=== PATIENT | male | born 1960 | race Caucasian/White ===

== ENCOUNTER 2020-02-13 05:55 | Day surgery (SDC) | payer OTHER, SELFPAY ==
[2020-01-16 10:00] VITALS: BMI 42.1
[2020-01-31 09:08] VITALS: BMI 42.0
--- NOTE | 2020-01-31 09:57 | HP_ITS ---
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 Is patient in pain?: No Allergies Penicillins Allergy (Verified 01/31/20 09:08) Anaphylaxis tetanus immune globulin Allergy (Verified 01/31/20 09:08) Pain in joints Medications Lisinopril [Zestril] 30 mg PO DAILY 01/16/20 [History Confirmed 01/31/20] Clindamycin [Cleocin] 300 mg PO TID 01/30/20 [History Confirmed 01/31/20] [facility] Medical History Benign skin lesion of nose (Acute) Essential (primary) hypertension (Acute) Impaired fasting glucose (Acute) Localized swelling, mass and lump, neck (Acute) Malignant (primary) neoplasm, unspecified (Acute) Mixed hyperlipidemia (Acute) Obesity, unspecified (Acute) Obstructive sleep apnea (adult) (pediatric) (Acute) Personal history of other specified conditions (Acute) Pneumonia (Acute) Secondary malignant neoplasm of other specified sites (Acute) Surgical History History of biopsy (Acute) History of tonsillectomy and adenoidectomy (Acute) S/P tooth extraction (Acute) Social History (Updated 01/31/20 @ 09:[address] Evelyn Castillo MD) Smoking Status: Former smoker HPI HPI HPI: TREVON CABALLERO, is a 59 M who presents to the office today for HPI HPI Surgical H&P: Yes HPI: TREVON CABALLERO, is a 59 M who presents to the office today for placement of port as well as PEG tube due to right-sided neck squamous cell cancer?unknown primary. Patient was initially referred for surgery at [facility] however due to coronavirus this has been delayed and plan to start chemotherapy and radiation first week of January per the patient. ROS General General: Yes weight change and fatigue; no colon cancer, breast cancer or weakness HEENT HEENT: Yes swollen glands; no difficulty swallowing, eye injury, eye surgery or hoarseness Endo Endocrine: No thyroid disease, diabetes mellitus, thyroid cancer, Hair loss, heat intolerance or cold intolerance Musc Musculoskeletal: Yes back problems; no arthritis, rheumatoid arthritis, gout or joint pain Cardio Cardiovascular: Yes high blood pressure; no murmur, pacemaker, heart disease, atrial fibrillation, heart attack, heart stent, palpitations, shortness of breat with exertion or chest pain Resp Respiratory: Yes shortness of breath, No sleep apnea, No cough, No COPD, No asthma, No emphysema, No wheezing Gastro Gastrointestinal: No abdominal pain, No nausea or vomiting, Yes diarrhea, No constipation, No blood in stool, Yes acid reflux, No hemorrhoids, No ulcers, No gallbladder problem, No black,tarry stools Chet Hematologic: No blood thinners, No blood disorders, No bleeding, No anemia, No blood clots Neuro Neurologic: No weakness Exam Const General: cooperative, comfortable, no acute distress Neck Lymphatic: lymphadenopathy (Right level 2 node 4 x 3 cm) Chest Chest palpation & inspection: normal inspection of the chest (Superior/anterior) Cardio Heart Sounds: no murmurs GI Inspection: non-distended, obesity Palpation: soft, no guarding, nontender Assessment & Plan Problems 1. Adjustment and management of vascular access device Z45.2 2. Head and neck cancer C76.0 3. Encounter for PEG (percutaneous endoscopic gastrostomy) Z43.1 Plan I have discussed above with the patient- Port-a-Cath placement. Left possible right Patient has been counseled as to the risks/benefits of the procedure. I have explained the risks of the surgery, including but not limited to: infection, bleeding, injury to any blood vessels/nerves, injury to lungs (such as pneumothorax or hemothorax and need for chest tube), not having any access, nonfunctioning of port due to thrombosis, infection of port, etc. the patient understands and agrees to proceed. I have answered all the patient's questions to the patient?s satisfaction and the patient has no further questions. I have discussed the above with the patient. I have offered the patient EGD with placement of PEG tube. I have explained the risks/benefits of the procedure and described the procedure. I have discussed the risks with the patient, including but not limited to: infection, bleeding, perforation of the GI tract requiring emergency surgery, inability to complete the procedure, injury to any internal organs, complications of anesthesia, etc. - the patient understands and agrees to proceed. I have answered all the patient's questions to the patient's satisfaction and the patient has no further questions. Procedure essential: Yes On 12/31/2019 the [facility] ([facility]) Public Order signed by [facility] Director Donya Jaquez M.D., regarding the Management of Non-Essential Surgeries and Procedures for the purpose of preserving Personal Protective Equipment (PPE) and critical hospital capacity and resources within [place] went into effect as of 01/01/2020 at 5:00PM. According to the [facility] Public Order: This action will remain in full force and effect until the State of Emergency declared by the Governor no longer exists or the Director of the [facility] rescinds or modifies this Order. This [facility] order stated all non-essential or elective surgeries and procedures that utilize PPE should be delayed unless there is undue risk to the current or future health of a patient. After reviewing the aforementioned [facility] Public Order and the patients clinical case, I have determined that the scheduled procedure meets the criteria to go forward. Reason for performing procedure: There is a risk of metastasis or progression of staging. Greater than 50% of direct patient contact was spent in counseling or coordination of care. I spent 45 minutes counseling the patient and coordinating care. Evelyn Castillo M.D. Pager: [phone] [facility] [address] [place] [address], [address] [place] [address] Office: [phone] Plan Detail Follow Up We will schedule port and PEG placement. Coding Level of Care Code Off vis,new,level 4 Diagnoses Adjustment and management of vascular access device Z45.2 Head and neck cancer C76.0 Encounter for PEG (percutaneous endoscopic gastrostomy) Z43.1 Time Spent (min) 45 01/31/20 0957 <Electronically signed by Evelyn Singh am, MD> Date _ Evelyn Castillo MD I have re-examined the patient. There are no clinical changes since date of exam.
[2020-02-04 09:26] VITALS: BMI 42.7
[2020-02-13] VITALS (8 sets, daily range): BP systolic 121–160; BP diastolic 71–93; PULSE 64–85; RESP 16–18; TEMP 36.2–36.6; O2SAT 72–98; BMI 42.4
[2020-02-13] MEDS: Lactated Ringers 1,000 ML 100 ML IV (06:42)
[2020-02-13] MEDS: Bupivacaine Mpf 0.5% 30 ML VIAL (07:49)
--- NOTE | 2020-02-13 08:42 | OP.PCM_ITS ---
Report of Operation Date of Procedure: 02/13/20 Pre-Operative Diagnosis: Z45.2, head neck cancer Post-Operative Diagnosis: Same Surgery/Procedure Performed:: 1. Placement of left IJ port. 2. Use of fluoroscopy. 3. Use of ultrasound. Type of Anesthesia:: Local MAC Anesthesiologist: Edilberto Smiley Special Medications: Clindamycin 900 mg IV x1 Specimen's removed: None Estimated Blood Loss (mL): < 10 cc Fluids Replaced: 1100 cc Description of Procedure: After informed consent was given, the patient was brought to the operating room and placed in the supine position. Appropriate time out protocol was followed. He was then given IV conscious sedation for anesthesia. The patient's bi lateral upper chest and neck were then prepped with a surgical skin preparation and sterile surgical drapes were placed. After proper landmarks were ascertained, the skin at the upper left chest area was then infiltrated with 1:1 mixture of 1% lidocaine with epinephrine and 0.5% marcaine. A needle trocar was then inserted into the left internal jugular vein with ultrasound guidance-multiple vessels were viewed with u/s and the left IJ was chosen-- and there was good aspiration of venous blood. A wire was then threaded into the needle trocar and this was visualized under fluoroscopy to e nsure that the wire was in the superior vena cava. Once this was done, then the needle trocar was removed. A small skin angel was made with an 11 blade knife at the wire entrance site. The dilator with the introducer sheath attached was then placed over the wire into the left internal jugular vein via the Seldinger technique and this was visualized under fluoroscopy. The dilator and sheath wer e in proper position as visualized by fluoroscopy. A subcutaneous pocket was then created caudad to the catheter insertion site. A transverse skin incision was made after the skin and subcutaneous tissues were infiltrated with local anesthetic. Blunt dissection was then used to create a space large enough for placement of the subcutaneous port. The catheter was then tunneled into the subcutaneous pocket. The wire and dilator were then removed. The catheter was then threaded into the introducer sheath and was positioned with its tip at the junction of the superior vena cava and the right atrium as visualized under fluoroscopy. The excess catheter was transected. The catheter was then attached to the subcutaneous port using manufacturers guidelines. The catheter was flushed with a heparin saline mixture prior to placement. Hemostasis was carefully controlled with electrocautery. The port was sutured to the subcutaneous fascia using 2-0 Vicryl suture at two sites. The port was then placed in the subcutaneous pocket. The incision were reapproximated with interrupted subdermal 3-0 vicryl sutures. The skin was reapproximated with 3-0 nylon suture in a interrupted fashion. Steristrips were used for reinforcement of the skin closure at IJ insertion site and a sterile opsite dressings were applied. The patient tolerated the procedure well. Implants Used: Bard PowerPort isp M.R.I. 6 Fr Lot [id number] ref [id number] Grafts/Implants Used: Bard PowerPort isp M.R.I. 6 Fr Lot [id number] ref [id number] - Complications none
--- NOTE | 2020-02-13 08:48 | DCINST_ITS ---
Discharge Diet: Light diet - advance as tolerated Discharge Activity: May not drive while taking narcotic pain medications. May shower in (days): 1 - Keep port site dry x5 days Lifting Restrictions: 15 lb w left arm x 1 week Call your doctor if your incision/area has: Continuous Slow Oozing, Sudden Increased Bleeding, Increased Pain/ Swelling, Increased Redness, Foul Smelling Discharge, Swelling at the incision site Call your doctor if you observe: Fever of 101 or Higher Catheter: - - Flush PEG daily Additional Dressing/Incision Instructions:: Keep port site clean and dry x5 days, to shower tape off with a Ziploc bag or lower shower and upper sponge bath, okay to get neck incision wet after 1 day Allergies/Adverse Reactions: Allergies Penicillins Allergy (Verified 02/13/20 06:26) Anaphylaxis tetanus immune globulin Allergy (Verified 02/13/20 06:26) Pain in joints Patient reports loss of use of arm and leg for a few days after receiving tetanus injection on that side Medications to take at Discharge Lisinopril [Zestril] 30 mg PO DAILY 01/16/20 Lidocaine/Prilocaine [Lidocaine-Prilocaine Cream] 1 applicatio TP DAILY PRN PRN 30 Days #1 tube 02/04/20 Ondansetron [Ondansetron Odt] 8 mg PO Q8H PRN PRN 10 Days #30 tab.rapdis 02/04/20 Hydrocodone/Acetaminophen [Hydrocodon-Acetaminophen 5-325] 1 ea PO Q6H PRN PRN 4 Days #10 tab 02/13/20 The following prescriptions were given: Hydrocodone/Acetaminophen [Hydrocodon-Acetaminophen 5-325] 1 ea PO Q6H PRN PRN 4 Days #10 tab PRN Reason: Pain Or Fever Transmission Status: Received by [facility] Primary Care Physician: CULLEN BARRY [Other] Test Results: Test results from this visit will be discussed in further detail at your follow- up appointment, if applicable. Please Follow Up With: Evelyn Castillo MD - After 5 PM and on the weekends call [phone] with any concerns When: Suture removal in 10 days at port site --either 02/20 or 02/23 at office Proposed Discharge Date: 02/13/20
--- NOTE | 2020-02-13 09:00 | RAD_ITS ---
STUDY: X-RAY CHEST REASON FOR EXAM: Male, 59 years old. Port placement TECHNIQUE: Single AP portable view of the chest. COMPARISON: None. FINDINGS: A left-sided portacatheter has been placed. The tip is in the proximal/midportion of the superior vena cava. The lungs are clear and expanded. There is no demonstrated pleural abnormality. There is mild cardiac enlargement. Normal mediastinum and charanjit. Normal visualized pulmonary arteries. Normal visualized aortic arch and descending thoracic aorta. There are diffuse degenerative changes of the visualized thoracic spine. Normal visualized ribs, clavicles, and shoulders. There is no demonstrated abnormality of the visualized soft tissue structures of the upper abdomen. RAD/CXR for Line Placement IMPRESSION: The tip of the left portacatheter is in the proximal/midportion of the superior vena cava. Electronically Signed: Efrain Rodriguez, at 9:22 EDT , Service support ,
--- NOTE | 2020-02-13 09:10 | OP.EGD_ITS ---
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 Complications: No immediate complications. Procedure: Pre-Anesthesia Assessment: - Prior to the procedure, a History and Physical was performed, and patient medications and allergies were reviewed. The patient's tolerance of previous anesthesia was also reviewed. The risks and benefits of the procedure and the sedation options and risks were discussed with the patient. All questions were answered, and informed consent was obtained. Prior Anticoagulants: The patient has taken no previous anticoagulant or antiplatelet agents. ASA Grade Assessment: Per anesthesia. After reviewing the risks and benefits, the patient was deemed in satisfactory condition to undergo the procedure. After obtaining informed consent, the endoscope was passed under direct vision. Throughout the procedure, the patient's blood pressure, pulse, and oxygen saturations were monitored continuously. The gastroscope was introduced through the mouth, and advanced to the second part of duodenum. The upper GI endoscopy was accomplished without difficulty. The patient tolerated the procedure well. Scope In: 8:28:38 AM Scope Out: 8:38:56 AM Total Procedure Duration Time 0 hours 10 minutes 18 seconds Findings: The examined duodenum was normal. The patient was placed in the supine position for PEG placement. The stomach was insufflated to appose gastric and abdominal torre. A site was located in the body of the stomach with excellent transillumination for placement. The abdominal wall was marked and prepped in a sterile manner. The area was anesthetized with 4 mL of 1% lidocaine. The trocar needle was introduced through the abdominal wall and into the stomach under direct endoscopic view. A snare was introduced through the endoscope and opened in the gastric lumen. The guide wire was passed through the trocar and into the open snare. The snare was closed around the guide wire. The endoscope and snare were removed, pulling the wire out through the mouth. A skin incision was made at the site of needle insertion. The externally removable 20 Fr Bard gastrostomy tube was lubricated. The G-tube was tied to the guide wire and pulled through the mouth and into the stomach. The trocar needle was removed, and the gastrostomy tube was pulled out from the stomach through the skin. The external bumper was attached to the gastrostomy tube, and the tube was cut to remove the guide wire. The final position of the gastrostomy tube was confirmed by relook endoscopy, and skin marking noted to be 3.5 cm at the external bumper. The final tension and compression of the abdominal wall by the PEG tube and external bumper were checked and revealed that the bumper was loose and lightly touching the skin. The feeding tube was capped, and the tube site cleaned and dressed. Impression: - Normal examined duodenum. - An externally removable PEG placement was successfully completed. - No specimens collected. Recommendation: - Discharge patient to home. - Resume previous diet. - Continue present medications. 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 All rights reserved. The codes documented in this report are preliminary and upon geomagnetist review may be revised to meet current compliance requirements. MD Evelyn Reyna MD 02/13/2020 9:09:49 AM This report has been signed electronically. Number of Addenda: 0 Note Initiated On: 02/13/2020 8:28 AM
--- NOTE | 2020-02-13 09:10 | OP.CCLET_ITS ---
02/13/2020 Ioana Huerta Re : Upper GI endoscopy procedure for Bob Huerta This procedure was performed on January. My impressions and recommendations are as follows: Impressions : - Normal examined duodenum. - An externally removable PEG placement was successfully completed. - No specimens collected. Recommendations : - Discharge patient to home. - Resume previous diet. - Continue present medications. My findings are described in the full procedure note, which is enclosed. If I can be of further assistance, please feel free to contact me at Doctor phone number(s): , Work: . Sincerely, MD Evelyn Reyna MD 02/13/2020 9:09:49 AM This report has been signed electronically.
== END 2020-02-13 10:26 | disposition home or self-care (01) ==
LOC: SDC 06:01 → AC 06:01
PROVIDERS: Referring Provider Surgery; Visit Provider Surgery
PROC: (CPT 36561; principal; 2020-02-13 07:15)
PROC: 0DJ08ZZ Inspection of Upper Intestinal Tract, Via Natural or Artificial Opening Endoscopic (ICD-10-PCS; CPT 43235; principal; 2020-02-13 08:25)
DX: Z45.2 Encounter for adjustment and management of vascular access device (principal); C76.0 Malignant neoplasm of head, face and neck; Z43.1 Encounter for attention to gastrostomy; I10 Essential (primary) hypertension; E66.9 Obesity, unspecified; Z68.41 Body mass index [BMI] 40.0-44.9, adult; G47.33 Obstructive sleep apnea (adult) (pediatric); N40.0 Benign prostatic hyperplasia without lower urinary tract symptoms; Z87.01 Personal history of pneumonia (recurrent); Z79.899 Other long term (current) drug therapy; Z87.891 Personal history of nicotine dependence
CPT/HCPCS: 00532; 36561; 43246; 71045; 77001; J7120; J2405

== ENCOUNTER → 2020-02-26 07:49 | Outpatient (CLI) | payer OTHER, SELFPAY ==
[2020-01-16 10:00] VITALS: BMI 42.1
[2020-02-17 08:46] VITALS: BMI 41.8
[2020-02-24 08:34] VITALS: BMI 41.8
--- NOTE | 2020-02-26 08:40 | SP.MBSS_ITS ---
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 currently undergoing chemoradiation (Taxol/Carboplatin) MEDICAL HISTORY: Clinical stage I (cT0 cN1 M0) P16 positive right cervical squamous cell cancer currently undergoing chemoradiation (Taxol/Carboplatin) status post percutaneous endoscopic gastrostomy (PEG) tube placement (02/12/2018), benign skin lesion of nose (11/2019), former tobacco abuse (recently quit; 30 PPY), obstructive sleep apnea (adult), pneumonia (1995), essential (primary) hypertension, Impaired fasting glucose, mixed hyperlipidemia, obesity, status post tonsillectomy and adenoidectomy (age 7) PREVIOUS MODIFIED BARIUM SWALLOW STUDY: None; possible FEES completion last September. ASSESSMENT PARAMETERS: The Patient participated in a Modified Barium Swallow (MBS) study on 02/19/2020. This study was recorded in the lateral view and images were sent to PACs for storage. Scoring was completed through each trial using the 8- point Penetration-Aspiration Scale (PAS) and the Videofluoroscopic Scale Score (VSS), and summarized via the Modified Barium Swallow Impairment Profile (MBSImP) and the Bolus Residue Scale (BRS), with severity scoring through the Dysphagia Severity Rating Scale (DSRS), the Swallowing Performance Scale (SPS), the Dynamic Imaging Grade of Swallowing Toxicity (DIGEST), and the Dysphagia Classification Scale (DCS), and recommended diet textures through the International Dysphagia Diet Standardisation Initiative (IDDSI) RESULTS OF THE EVALUATION: The Patient presents with mild oropharyngeal dysphagia (DSRS: 2; SPS: 2; DIGEST: grade I) with intermittent transient penetration of thin liquids secondary to clinical stage I (cT0 cN1 M0) P16 positive right cervical squamous cell cancer currently undergoing chemoradiation (Taxol/Carboplatin) OBJECTIVE ASSESSMENT OF SWALLOW FUNCTION (QUANTITATIVE ? PER TRIAL): PENETRATION / ASPIRATION SCALE (THACKER): 1 = does not enter airway 2 = enters airway/above vocal folds/ejected 3 = enters airway/above vocal folds/not ejected 4 = enters airway/contacts vocal folds/ejected 5 = enters airway/contacts vocal folds/not ejected 6 = enters airway/below vocal folds/ejected 7 = enters airway/below vocal folds/not ejected despite effort 8 = enters airway/below vocal folds/no effort PENETRATION / ASPIRATION SCALE (SCORE): Thin liquid - 5 mL tsp.: 1 Thin liquids via straw (habitual / large): 2 Thin liquids via straw (habitual / large): 1 Thin liquids via straw (sequential swallows): 1 Pudding via spoon: 1 Regular textured cookie: 1 Thin liquids via straw (habitual / large): 2 OBJECTIVE ASSESSMENT OF SWALLOW FUNCTION (QUANTITATIVE ? AGGREGATE): MODIFIED BARIUM SWALLOW IMPAIRMENT PROFILE (MBSImP) LABIAL SEAL: 0 (of 4) no labial escape TONGUE CONTROL: 0 (of 3) cohesive bolus BOLUS PREPARATION / MASTICATION: 0 (of 3) timely and efficient BOLUS TRANSPORT / LINGUAL MOTION: ORAL RESIDUE: 1 (of 4) trace residue lining oral structures INITIATION OF PHARYNGEAL SWALLOW: 1 (of 4) valleculae SOFT PALATE ELEVATION: 0 (of 4) no bolus between soft palate & pharyngeal wall LARYNGEAL ELEVATION: 0 (of 3) complete superior movement / approximation ANTERIOR HYOID EXCURSION: 0 (of 2) complete movement EPIGLOTTIC MOVEMENT: 0 (of 2) complete inversion LARYNGEAL VESTIBULE CLOSURE: 0 (of 2) complete closure PHARYNGEAL STRIPPING WAVE: 0 (of 2) present / complete PE SEGMENT OPENIN (of 3) complete distension / duration; no obstruction TONGUE BASE RETRACTION: 1 (of 4) trace column of contrast PHARYNGEAL RESIDUE: 1 (of 4) trace residue ESOPHAGEAL BOLUS CLEARANCE: 0 (of 4) complete clearance; esophageal coating BOLUS RESIDUE SCALE (BRS): 2 (of 6) residue in valleculae OBJECTIVE ASSESSMENT OF SWALLOW FUNCTION (SEVERITY GRADING): DYSPHAGIA SEVERITY RATING SCALE (DSRS): 2 (mild) DSRS CLASSIFICATION CHARACTERISTICS: oropharyngeal dysphagia present, which can be managed by specific swallow suggestions; SWALLOWING PERFORMANCE SCALE (SPS): 2 (within functional limits) SPS CLASSIFICATION CHARACTERISTICS: abnormal oral or pharyngeal stage; able to eat regular diet without modifications or swallowing precautions DYSPHAGIA CLASSIFICATION SCALE (DCS): D0 (normal) DCS CLASSIFICATION CHARACTERISTICS: without stasis or food consistency restrictions DYNAMIC IMAGING GRADE OF SWALLOWING TOXICITY (DIGEST) DIGEST SAFETY GRADE: grade 0 (PAS 1-2) DIGEST EFFICIENCY GRADE: grade 1 (10-49%; less than half residue) SUMMARY DIGEST GRADE: grade 1 (mild) OBJECTIVE ASSESSMENT OF SWALLOW FUNCTION (QUALITATIVE): ORAL PREPARATORY PHASE: competent bolus manipulation without fragmented swallowing (piecemeal deglutition); sufficient anterior oral containment during oral manipulation; preserved management of breathing / bolus formation without disrupted E ? S ? E pattern ORAL TRANSITIONAL PHASE: overall sufficient bolus transportation, with occasional discoordination and reduced transitional speed due to the recent onset of oral and pharyngeal ulcerations; sufficient oral clearance; sufficient oral containment across textures; PHARYNGEAL PHASE: no clinically significant findings indicating pharyngeal phase dyssynchrony; appropriate hyolaryngeal excursion and laryngeal vestibule closure / pressure; appropriate pharyngeal motility, with mild consolidation within the valleculae with semisolid and solid textures; no signs of velopharyngeal impairments. ESOPHAGEAL PHASE: no obvious esophageal phase abnormalities observed. CONTRIBUTING / COMPLICATING FACTORS AND NOTABLE FINDINGS: recent onset of oral and posterior pharyngeal ulcerations likely complicating intake with mild odynophagia (1-2/10), with this anticipated to worsen throughout the irradiation cycle. RESPONSE TO STRATEGIES: all deficits managed successfully with bolus rate / volume adjustments. INTERVENTION CONSIDERATIONS AND RECOMMENDATIONS: I cannot definitively rule out silent aspiration at bedside; I would consider objective assessment of the oropharyngeal swallow function if silent aspiration is suspected (no current clinical suspicions) due to the high prevalence associated with the Patients etiology. I will additionally recommend a repeat modified barium swallow study within 1-2 months post chemoradiation to further assess the Patients oropharyngeal swallow function and identify any post radiation changes in the oropharyngeal physiology, as the patient is at higher risk for continual changes and possible decline in swallow functioning / dysphagia severity throughout the chemoradiation intervention cycle; he will benefit from continued monitoring and treatment plan adjustments as necessary. 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 The Patent is at higher risk of oropharyngeal colonization with respiratory pathogens secondary to recent / current smoking status, and anticipated radiation toxicities, to include xerostomia, and anticipated suboptimal immune system functioning throughout the chemoradiation cycle. Aspiration of saliva contaminated with pathogens can lead to pulmonary infections, with creation, implementation, and adherence to an aggressive oral and dental care program is essential. I would recommend an aggressive oral care program that includes pre-rinse use prior to water intake; routine oral care / denture care in the a.m., prior to oral intake, after oral intake, and prior to bed via toothbrush / swab / rinse; use of oral moisturizers as needed to reduce impact of xerostomia, and frequent dental checkups post-radiation. RECOMMENDATIONS FOR INTERVENTION: The Patient requires intensive skilled speech-language intervention targeting diet texture management and training / implementation of recommended compensatory strategies; development, training and implementation of a prophylactic swallowing exercise program to promote the highest level of preserved post-irradiation swallow functioning; training and implementation of a home oral care protocol to reduce the effects of xerostomia and improve / maintain the integrity of the oral mucosa reducing the risk of aspiration related pulmonary complications; Patient / caregiver education regarding indira and post-irradiation dysphagia and associated symptomology; in addition to recommendations for further diagnostic assessment of the swallow function under fluoroscopy via Modified Barium Swallow (MBS) study; with goal adjustment as clinically indicated. POST ASSESSMENT EDUCATION: The results and recommendations were discussed with the Patient and Patients family immediately following MBS completion, with the Patient and Patients family verbalizing understanding and agreement with all recommendations and education provided. DIET TEXTURE RECOMMENDATIONS: Will recommend a regular ? soft textured (IDDSI: 6), thin liquid diet (IDDSI: 0) diet RECOMMENDED COMPENSATORY STRATEGIES: Consider cutting tougher textures into bite sized pieces, reduced bolus volume / rate of ingestion, seated upright at 90 degrees during PO intake, remain upright for 30-60 minutes post meal (GERD precaution) IMAGE COUNT: [id number] Kali Christy M.A., DARIN-CHAPARRITA, CBIS MBSImP Certified, LSVT Certified [facility] Speech-Language Pathology Department Email: [email or web address]
== END ==
PROVIDERS: Referring Provider Student in an Organized Health Care Education/Training Program; Visit Provider Student in an Organized Health Care Education/Training Program
DX: R13.10 Dysphagia, unspecified (principal)
CPT/HCPCS: 74230; 92611

== ENCOUNTER 2020-05-13 09:30 | Outpatient (RCR) | payer OTHER, SELFPAY ==
--- NOTE | 2019-03-06 11:30 | SOAP_ITS ---
REASON FOR REFERRAL: The Patient is a 59 year old male referred for a clinical assessment of the swallow function at [facility] on 02/05/2020 secondary to clinical stage I (cT0 cN1 M0) P16 positive right cervical squamous cell cancer with plans for initiation of irradiation in conjunction with proposed Taxol/Carboplatin chemotherapy regimen. The Patient denies the presence of dysphagia, denies any overt signs and symptoms of aspiration. He denies any significant weight loss (stable; 315 lbs.) with plans for prophylactic percutaneous endoscopic gastrostomy (PEG) tube placement on 02/12/2018. He denies any issues with appetite, early satiety (feeling full after few bites), inanition, nausea, or emesis. He denies issues with hypogeusia (reduced taste), dysgeusia (abnormal / unpleasant taste), or ageusia (absence of taste). He denies issues with xerostomia (dry mouth); denies issues with diurnal sialorrhea (drooling during the daytime). He denies any symptoms associate with trismus; denies odynophagia (pain during swallow); He denies issues with reflux / heartburn, globus sensation, post prandial substernal discomfort, or feelings of bolus stasis. He denies any suboptimal intake behaviors (tachyphagia, bolus bolting, or aerophagia). He reports that he may have underwent a fiberoptic evaluation of swallowing (FEES) at [facility], though is uncertain. The Patient appears cognitively intact, affect appears appropriate given the Patients current medical circumstances. The Patient is fully ambulatory, no difficulties with posture maintenance, and appears well nourished. 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 MEDICAL HISTORY: Clinical stage I (cT0 cN1 M0) P16 positive right cervical squamous cell cancer with anticipated chemoradiation (Taxol/Carboplatin), benign skin lesion of nose (11/2019), former tobacco abuse (recently quit; 30 PPY), obstructive sleep apnea (adult), pneumonia (1995), essential (primary) hypertension, Impaired fasting glucose, mixed hyperlipidemia, obesity, status post tonsillectomy and adenoidectomy (age 7) PREVIOUS MODIFIED BARIUM SWALLOW STUDY: None; possible FEES completion last September. RESULTS OF THE EVALUATION: The Patient presents with current mastication and deglutition abilities, though is at an elevated risk for post irradiation dysphagia given the location of the Patients tumor and proposed irradiation location. FUNCTIONAL STATUS ASSESSMENT RESULTS: MOHAN INDEX OF INDEPENDENCE IN ACTIVITIES OF DAILY LIVIN/6 BATHIN DRESSIN TOILETIN TRANSFERRIN CONTINENCE: 1 FEEDIN SHARMIN-PHILIPPE INSTRUMENTAL ACTIVITIES OF DAILY LIVING SCALE (IADL): 8/8 ABILITY TO USE THE TELEPHONE: 1 SHOPPIN FOOD PREPARATION: 1 HOUSEKEEPIN LAUNDRY: 1 MODE OF TRANSPORTATION: 1 RESPONSIBILITY FOR OWN MEDICATION: 1 ABILITY TO HANDLE FINANCES: 1 KARNOFSKY PERFORMANCE SCALE INDEX: KARNOFSKY SCORE: 100 SCORE DESCRIPTION: normal no complaints; no evidence of disease; able to carry on normal activity and to work; no special care needed. ECOG PERFORMANCE STATUS SCORE: ECOG SCORE: 0 SCORE CRITERIA: asymptomatic SCORE DESCRIPTION: fully active, able to carry on all pre-disease activities without restriction. FUNCTIONAL AMBULATION CATEGORY (FAC): FAC SCORE: 5 (ambulator- independent) FAC DESCRIPTION: subject can ambulate independently on nonlevel and level surfaces, stairs, and inclines. ORAL MOTOR / MODIFIED CRANIAL NERVE ASSESSMENT: CNV, VII, IX, X, and XII appear grossly intact; natural upper / lower dentition in sufficent repair; recent right sided extractions (right lower quadrant), denies odontalgia (toothache); moist pinkish appearance to the oral mucosa without xerostomia; appropriate volitional cough intensity; no reported or identified signs or symptoms suggesting trismus SUPPLEMENTARY DYSPHAGIA ASSESSMENT RESULTS (SCALES / PROM): WORLD HEALTH ORGANIZATION (WHO) ORAL MUCOSITIS SCALE: WHO ORAL MUCOSITIS SCALE GRADE: grade 0 WHO ORAL MUCOSITIS SCALE GRADE DESCRIPTION: no objective findings ORAL MUCOSITIS GRADING SCALE (OMGS): OMGS GRADE: grade I OMGS GRADE SCALE DESCRIPTION: asymptomatic; intervention not indicated RTOG RADIATION MORBIDITY SCORING CRITERIA FOR XEROSTOMIA: ACUTE REACTIONS: grade 0 GRADE DESCRIPTION: no filter changer baseline SIALORRHEA SCORING SCALE (SSS): SSS SCORE: 10/24 SSS DESCRIPTION: dry, never drools SCALE OF SUBJECTIVE TOTAL TASTE ACUITY (STTA): STTA GRADE: grade 0 STTA GRADE DESCRIPTION: same taste acuity as before treatment PERFORMANCE STATUS SCALE FOR HEAD & NECK CANCER PATIENTS (PSS-HN): NORMALCY OF DIET: 100 ? full diet (no restrictions) PUBLIC EATIN ? no restriction of place, food, or company UNDERSTANDABILITY OF SPEECH: 100 ? always understandable PSS-HN TOTAL SCORE: 300/300 TOTAL DYSPHAGIA RISK SCORE (TDRS): T-CLASSIFICATION: 0 (T1 or T2) WEIGHT LOSS BASELINE: 5 (1-10%) CONCOMITANT CHEMORADIATION: 5 (yes) ACCELERATED RADIOTHERAPY: 0 (no) BILATERAL NECK IRRADIATION: 0 (no) PRIMARY TUMOR SITE: 7 (oropharynx) TDRS RISK SCORE: 17 TDRS RISK CATEGORY: intermediate risk (TDRS = 10 ? 18) CLINICAL ASSESSMENT OF SWALLOW FUNCTION (QUANTITATIVE): REPETITIVE SALIVA SWALLOWING TEST (RSST): RSST RESULT: pass RSST DESCRIPTION: able to elicit 2 dry swallows within 30 seconds. 1oz WATER SWALLOWING TEST (1oz WST): 1oz WST RESULTS: normal ? 1 (of 5) 1oz WST DESCRIPTION: single swallow without coughing during ingestion DRINKING EPISODES: none 3oz WATER SWALLOWING TEST (3oz WST): 3oz WST RESULTS: normal DRINKING EPISODES: none DAY 6 FACTORS: DYSPHONIA: 0 (negative) DYSARTHRIA: 0 (negative) ABNORMAL GAG RESPONSE: 0 (negative) ABNORMAL VOLITIONAL COUGH: 0 (negative) POST PRANDIAL COUGHIN (negative) POST PRANDIAL VOCAL CHANGES: 0 (negative) DAY 6 FACTORS SCORE: 0 DAY 6 FACTORS DESCRIPTION: normal to mild (0 to 1 clinical predictors) SANDOVAL ASSESSMENT OF SWALLOWING ABILITY ? CANCER (MASA-C): MASA ASPIRATION SEVERITY SCORE: 200 MASA SEVERITY SCORE DESCRIPTION: no abnormality detected MASA-C DYSPHAGIA RISK RATING: possible; lowered probability of disorder CLINICAL ASSESSMENT OF SWALLOW FUNCTION (QUALITATIVE): ORAL PREPARATORY PHASE: sufficient mastication rate and quality; sufficient anterior oral containment during manipulation; preserved management of breathing / bolus formation without disrupted E ? S ? E pattern ORAL TRANSITIONAL PHASE: no signs of transitional incompetence; no lingual discoordination (no tremor / undulations) noted upon digital palpation; no signs of bolus consolidation impairments no signs or symptoms of premature posterior bolus loss; PHARYNGEAL PHASE: appropriate hyolaryngeal excursion upon digital palpation; no obvious findings suggestive of pharyngeal phase delay / dyssynchrony; no subjective signs of pharyngeal dysmotility; no subjective signs of velopharyngeal impairments; no signs or symptoms of penetration / aspiration throughout trials. ESOPHAGEAL PHASE: esophageal phase appears unremarkable CLINICAL ASSESSMENT OF SWALLOW FUNCTION (SEVERITY GRADING): SWALLOWING PERFORMANCE SCALE (SPS): 1 (normal) SPS SCORE DESCRIPTION: normal swallow function INTERVENTION CONSIDERATIONS AND RECOMMENDATIONS: I cannot definitively rule out silent aspiration at bedside; I would consider objective assessment of the oropharyngeal swallow function if silent aspiration is suspected (no current clinical suspicions) due to the high prevalence associated with the Patients etiology. I will additionally recommend a repeat modified barium swallow study within 1-2 months post chemoradiation to further assess the Patients oropharyngeal swallow function and identify any post radiation changes in the oropharyngeal physiology, as the patient is at higher risk for continual changes and possible decline in swallow functioning / dysphagia severity throughout the chemoradiation intervention cycle; he will benefit from continued monitoring and treatment plan adjustments as necessary. 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 The Patent is at higher risk of oropharyngeal colonization with respiratory pathogens secondary to recent / current smoking status, and anticipated radiation toxicities, to include xerostomia, and anticipated suboptimal immune system functioning throughout the chemoradiation cycle. Aspiration of saliva contaminated with pathogens can lead to pulmonary infections, with creation, implementation, and adherence to an aggressive oral and dental care program is essential. I would recommend an aggressive oral care program that includes pre-rinse use prior to water intake; routine oral care / denture care in the a.m., prior to oral intake, after oral intake, and prior to bed via toothbrush / swab / rinse; use of oral moisturizers as needed to reduce impact of xerostomia, and frequent dental checkups post-radiation. RECOMMENDATIONS FOR INTERVENTION: The Patient requires intensive skilled speech-language intervention targeting diet texture management and training / implementation of recommended compensatory strategies; development, training and implementation of a prophylactic swallowing exercise program to promote the highest level of preserved post-irradiation swallow functioning; training and implementation of a home oral care protocol to reduce the effects of xerostomia and improve / maintain the integrity of the oral mucosa reducing the risk of aspiration related pulmonary complications; Patient / caregiver education regarding indira and post-irradiation dysphagia and associated symptomology; in addition to recommendations for further diagnostic assessment of the swallow function under fluoroscopy via Modified Barium Swallow (MBS) study; with goal adjustment as clinically indicated. POST ASSESSMENT EDUCATION: The results and recommendations were discussed with the Patient and the Patients family immediately following completion of the assessment, with the Patient and the Patients family verbalizing understanding and agreement with all recommendations and education provided. We discussed factors impacting effects of aspiration, to include: the quantity of aspiration, the depth of aspiration (trachea or distal airways), and the physical properties of the aspirate. We discussed consequences of oropharyngeal dysphagia, to include pulmonary complications from tracheobronchial aspiration; potential for airway obstruction / asphyxiation; inadequate oral intake because of dysphagia; reduced liquid intake resulting in dehydration; reduced caloric intake resulting in unintentional and potentially medically complicating loss of weight; possible impairment in mental and physical condition; and complications in overall course of care. We discussed the Patients elevated risk for continual changes and possible decline in swallow functioning / dysphagia severity throughout the chemoradiation intervention cycle; the Patient would benefit from continued monitoring across all domains throughout irradiation therapy including post irradiation. We discussed recommendations for prophylactic oropharyngeal strengthening / range of motion exercises to reduce the effects of indira and post radiation induced oropharyngeal dysphagia associated with head and neck cancer, with; further / continual training highly indicated to ensure proper execution and maintenance to the program. We discussed benefits and risks associated with alternative means of nutrition, with increased access to caloric supplementation and reduce hydration deficits, though nasogastric / gastrostomy feeding does not significantly reduce aspiration risk. I provided reinforcement of prior Patient and family education regarding the importance of oral care throughout the irradiation process and post- irradiation, with recommendations for an aggressive oral care program. DIET TEXTURE RECOMMENDATIONS: Will recommend a regular textured (IDDSI: 7), thin liquid diet (IDDSI: 0) diet RECOMMENDED COMPENSATORY STRATEGIES: Seated upright at 90 degrees during PO intake, FUNCTIONAL OUTCOMES: OUTCOME 1: the Patient will tolerate the least restrictive means of nutrition to facilitate adequate hydration / nutrition with optimum safety and efficiency of swallowing function during P.O. intake without overt signs and symptoms of aspiration. OUTCOME 2: the Patient will demonstrate and utilize recommended oropharyngeal range of motion exercise within the Patients clinical and home based program to improve and maintain overall oropharyngeal functioning and reducing the effects of post-irradiation dysphagia, with minimal cueing and prompting provide by the clinician, across 2 out of 3 sessions. OUTCOME 3: the Patient will participate in continual Patient / Patient caregiver education regarding indira and post-irradiation dysphagia and associated symptomology to facilitate improved awareness and insight into the Patients current and anticipated dysphagia related complications and potential impact on the Patients overall medical stability. OUTCOME 4: the Patient will participate in a Modified Barium Swallow (MBS) study to objectively assess the Patient?s oropharyngeal swallowing function, to determine the least restrictive means of nutrition, to objectively assess the effectiveness of previously identified strategies / precautions, and to identify appropriate intervention approaches / strategies to implement during treatment sessions at the supervised level. OUTCOME 5: goal adjustment as needed Kali Christy M.A., CCC-MARKET DEVELOPMENT SPECIALIST, CBIS MBSImP Certified, LSVT Certified [facility] Speech-Language Pathology Department Email: [email or web address]
[2020-01-16 10:00] VITALS: BMI 42.1
[2020-01-31 09:08] VITALS: BMI 42.0
== END 2020-05-13 19:00 | disposition home or self-care (01) ==
LOC: SP 09:30
PROVIDERS: PCP Family Medicine; Referring Provider Student in an Organized Health Care Education/Training Program; Visit Provider Student in an Organized Health Care Education/Training Program
DX: C44.92 Squamous cell carcinoma of skin, unspecified (principal)
CPT/HCPCS: 92526; 92610

== ENCOUNTER → 2021-02-15 12:49 | Outpatient (CLI) | payer OTHER, SELFPAY ==
[2021-01-25 15:36] VITALS: BMI 35.9
[2021-02-01 15:58] VITALS: BMI 35.2
--- NOTE | 2021-02-15 14:20 | ST.MBS ---
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 From 02/17/2020 - 04/02/2020 he received definitive chemoradiation therapy. Objective assessment of swallow function under fluoroscopy recommended to monitor for post radiation changes in swallow function. Current Diet Ordered: regular textures/thin liquids Dentition: Natural Teeth, Missing Teeth - right upper/lower molars Mental Status: WNL Comment: Prior MBS - 02/2020 - mild oropharyngeal dysphagia with intermittent transient penetration of thin liquids, regular - soft textures/thin liquids recommended Respiratory Status: Oxygenating on Room Air - Penetration-Aspiration Scale Penetration-Aspiration Scale: OBJECTIVE ASSESSMENT OF SWALLOW FUNCTION (QUANTITATIVE ? PER TRIAL): PENETRATION / ASPIRATION SCALE (THACKER): 1 = does not enter airway 2 = enters airway/above vocal folds/ejected 3 = enters airway/above vocal folds/not ejected 4 = enters airway/contacts vocal folds/ejected 5 = enters airway/contacts vocal folds/not ejected 6 = enters airway/below vocal folds/ejected 7 = enters airway/below vocal folds/not ejected despite effort 8 = enters airway/below vocal folds/no effort - Penetration-Aspiration Scale Score Thin Liquid via teaspoon Result: 1= does not enter airway Thin Liquid via teaspoon Trial 2 Result: 1= does not enter airway Thin Liquid via small single sip from cup Result: 1= does not enter airway via sequential sips from cup Result: 5= enters airways/contacts vocal folds/not ejected Pudding Result: 1= does not enter airway Cookie Result: 1= does not enter airway Thin Liquid via small single sip from cup Trial 2 Result: 1= does not enter airway Thin Liquid via single sip from straw Result: 1= does not enter airway - Oral Phase Labial Seal: No Labial Escape Tongue Control During Bolus Hold: Cohesive bolus between tongue to palatal seal Bolus Preparation/Mastication: Slow prolonged chewing/mashing with complete recollection Bolus Transport/Lingual Motion: Repetitive/disorganized tongue motion Oral Residue: Trace residue lining oral structures - Pharyngeal Phase Initiation of Pharyngeal Swallow: Bolus head in valleculae Soft Palate Elevation: Trace column of contrast/air between soft palate and pharyngeal wall Laryngeal Elevation: Partial superior movement thyroid cart/partial apprx aryt-epig petiole Anterior Hyoid Excursion: Complete anterior movement Epiglottic Movement: Complete inversion Laryngeal Vestibule Closure at Height of Swallow: Incomplete; narrow column of air/contrast in laryngeal vestibule Pharyngeal Stripping Wave: Present - diminished - trace pharyngeal contraction Pharyngoesophageal Segment Opening: Complete distension and complete duration; no obstruction of flow Tongue Base Retraction: Narrow column of contrast between tongue base & post. pharyngeal wall Pharyngeal Residue: Collection of residue within or on pharyngeal structures - Esophageal Phase Esophageal Clearance: Complete clearance - Treatment Strategies Effects of treatment strategies attemped:: Dry/Double Swallow = EFFECTIVE Liquid Bolus Volume Reduction = EFFECTIVE - Diagnosis/Impression Diagnosis: mild oropharyngeal dysphagia Impression: The Patient presents with mild oropharyngeal dysphagia secondary to radiation therapy received for treatment of head & neck cancer. Swallow function is marked by disordered oral bolus transportation of solid textures w/ oral holding and bolus rocking prior to swallow onset, w/ xerostomia and lack of liquid chaser likely contributing to difficulty. Transient velopharyngeal penetration of thin liquids towards the nasopharynx that did not reach the nasopharynx. Reduced tongue base retraction and significantly diminished (nearly absent) pharyngeal stripping wave noted, resulting in suboptimal pharyngeal contraction for bolus clearance. Adequate anterior hyoid movement. Insufficient superior thyrohyoid approximation/elevation, when coupled w/ impaired pharyngeal retraction, resulted in base of tongue, vallecula, aryepiglottic fold and posterior pharyngeal wall (trace) residue retention lining these structures. Use of a second (dry) swallow was effective to reduce pharyngeal residue retention. Laryngeal vestibule penetration occurred w/ large volume sequential sips of thin liquid only. Penetration reached the vocal folds w/out complete ejection - trace contrast lined the laryngeal vestibule post deglutition. Reduction in liquid bolus volume and rate were effective to eliminate penetration. - Recommendations Diet: Regular Textures - Soft, Thin Liquids Compensatory Strategies: Small Bites, Small Sips, Slow Rate, Alternate bites/solids and sips/liquids Recommend Repeat Modified Barium Swallow: Yes - at yearly intervals to monitor cumulative effects of radiation on swallow function over time Need for Skilled Speech Therapy Services: Yes Comment: This patient requires additional outpatient dysphagia intervention targeting the following: reinforce compensatory strategies recommended, educate on compounding effects of radiation therapy on swallow function over time, instruct w/ strengthening and ROM exercise program in conjunction w/ myofascial release. Education Completed: 1. Described result of evaluation., 2. Pt understands evaluation & agrees with goals and treatment plan. Comment: Education provided re: results/recommendations. 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 Education well received w/ the patient verbalizing understanding of all education provided. - Image Count: [phone] - Status Active ST Patient: Active - Contact Information [facility] Speech Therapy:: Kitty Toussaint M.A., CCC-PENSION CONSULTANT [facility] [address] [place], [place] [id number] [email or web address]
== END ==
PROVIDERS: PCP Family Medicine; Referring Provider Student in an Organized Health Care Education/Training Program; Visit Provider Student in an Organized Health Care Education/Training Program
DX: C76.0 Malignant neoplasm of head, face and neck (principal)
CPT/HCPCS: 74230; 92611

== ENCOUNTER 2021-03-30 16:00 | Outpatient (RCR) | payer OTHER, SELFPAY ==
[2021-01-25 15:36] VITALS: BMI 35.9
[2021-02-01 15:58] VITALS: BMI 35.2
--- NOTE | 2021-02-24 16:34 | HP.SP.AD ---
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 From 02/17/2020 - 04/02/2020 he received definitive chemoradiation therapy. The patient recently participated in Modified Barium Swallow Study on 02/15/2021 to objectively assess aspiration risk and to monitor for post radiation changes in swallow function. The study revealed the patient to have mild oropharyngeal dysphagia with penetration with large volume sequential sips of thin liquids, decreased tongue base retraction, insufficient superior thyrohyoid approximation/elevation, and impaired pharyngeal retraction. 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 SEE MBS study results for further details regarding current swallow function and recommendations. 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 Right Hearing Abillity: Normal Left Hearing Abillity: Normal Visual Assistive Devices: Glasses Patients Living Arrangements: With Family Patient Allergies - Allergies Allergies Penicillins Allergy (Verified 02/01/21 15:57) Anaphylaxis tetanus immune globulin Allergy (Verified 02/01/21 15:57) Pain in joints Patient reports loss of use of arm and leg for a few days after receiving tetanus injection on that side Objective Oral Motor - Oral Status Dentition: WNL - Labial Impairment: WNL Observation at Rest: WNL Closure: WNL Pucker: WNL Retraction: WNL Alternating Pucker/Retraction: WNL Involuntary Movement noted: No - Lingual Impairment: WNL Protrusion: WNL Retraction: WNL - Jaw Impairment: Mild Observation at Rest: WNL Opening: Mild Involuntary Movement: No - Jaw Comments Comments: The pt reports decreased jaw ROM, notable most when he is yawning. - Oral Motor Comments Comments: The pt additionally reports xerostomia. SEE Cranial Nerve Examination for further oral motor concerns. - Respiratory Status Respiratory Status: Room Air Subjective Dysphagia - Symptoms Reported Other: Occ throat clearing with intake. - Current Diet Solids Current Diet: Soft - Current Diet Liquids Current Liquids: Thin - Comments Bedside Swallow Examination -: Trialed sips of thin liquids via cup and straw. Encouraged small sips, 1 at a time after reviewing results and recommendations of recent MBS study. The patient consumed sips demonstrating use of strategies and presented with no overt s/s of aspiration. Trialed bites of applesauce with timely swallow, no overt s/s of aspiration. Trialed bites of regular-texture cookie with throat clearing following 2 bites. Re-educated the patient in recommendation for alternating liquids and solids. Will recommend continuation of current diet: Regular - soft / thin liquids with aspiration precautions for small bites/sips, alternating liquids and solids, slow rate of intake, upright 90 degrees for intake. Other Impressions - Comments Additional Education -: Education provided regarding the potential impacts of radiation treatment on swallow function post treatment, including effects such as dysgeusia, radiation fibrosis, and disuse atrophy which may result in restricted range of motion and weakness of swallowing mechanism. Discussed impaired swallowing and increased risk for aspiration, aspiration related illnesses, weight loss, and malnutrition. Discussed importance for speech therapy to monitor and address dysphagia post radiation treatment to maintain optimal swallow function through continued education and prophylactic exercise program. Provided the patient a handout and demonstration of prophylactic oropharyngeal exercise program, as well as jaw ROM exercises. The patient provided return demonstration with all exercises with minimal verbal cues and demonstration. The patient would benefit from continued training to monitor proper execution of exercises and encourage strict adherence to exercise program. Swallowing Scales -: Functional Oral Intake Scale: 6 ? Total oral intake with no special preparation, but must avoid specific food or liquid items (Regular ? Soft textures / Thin liquids with use of compensatory strategies). Performance Status Scale for Head and Neck Cancer Patients: Normalcy of Diet ? 90 ? Full diet (liquid assist). Public Eating ? 100 ? No restriction of place, food, or kaia[place] kura ka[place] maori due to difficulty swallowing. Pt?s family have only recently began returning to restaurants after the COVID-19 pandemic. Understandability of Speech ? 100 ? Always understandable. Cranial Nerve Examination -: CRANIAL NERVE EXAMINATION: TRIGEMINAL NERVE (V) ? impaired; decreased hyolaryngeal elevation. FACIAL NERVE (VII) ? no clinical abnormalities observed; however, the pt noted he has decreased taste. VAGUS NERVE (X) ? impaired; asymmetry of palatoglossal arch with weakness and deviation noted to R side. Unable to assess sensory to the soft palate, as the pt had hyper-reflexive gag. HYPOGLOSSAL NERVE (XII) ? no clinical abnormalities observed. Plan - Plan Plan: Will recommend the patient for skilled outpatient dysphagia therapy to address oropharyngeal dysphagia related to post radiation effects s/p head and neck cancer and to provide the patient further education re: prophylactic exercise program, diet recommendations, aspiration precautions, and compensatory strategies to decrease risk for aspiration. Additionally, will provide ongoing assessment of diet tolerance. Without skilled ST services, the patient is at risk for aspiration and aspiration related illnesses. - Recommendations MBS: No Treatment Warranted: Yes - Frequency Frequency: Every Other Week Duration: 12 Months - Prognosis Prognosis: Excellent - Goals that are Established: Determination:: Goals will be added/modified as deemed necessary and appropriate. Therapy will be discontinued when results of re-evaluation indicate therapy is no longer needed or lack of progress has been documented. - Goal #1-5 Goal #1: The patient will consume least restrictive diet textures without overt s/s of aspiration with 90% accuracy with minimal verbal cues for use of compensatory strategies to decrease risk for aspiration. Goal #2: The patient will complete an oropharyngeal home exercise program X10-20 repetitions, 3-5X daily independently to improve strength, ROM, and coordination of swallowing mechanism. Goal #3: The patient will participate in MBS study to objectively assess swallow function and provide recommendations for safest, least restrictive diet and compensatory strategies to reduce risk for aspiration. Education - Patient Instruction Patient Education: Diagnosis, Treatment Plan, Goals, Diet Level, Home Exercise Program Person Taught: Patient Teaching Method: Discussion, Demonstration, Handout Response to teaching: Return demonstration, Verbalize understanding
== END 2021-03-30 19:00 | disposition home or self-care (01) ==
LOC: SP 16:00
PROVIDERS: PCP Family Medicine; Referring Provider Student in an Organized Health Care Education/Training Program; Visit Provider Student in an Organized Health Care Education/Training Program
DX: C76.0 Malignant neoplasm of head, face and neck (principal); R13.12 Dysphagia, oropharyngeal phase
CPT/HCPCS: 92526; 92610

== ENCOUNTER 2021-11-22 15:51 | Outpatient (CLI) | payer OTHER, SELFPAY ==
[2021-02-01 15:58] VITALS: BMI 35.2
--- NOTE | 2021-11-22 16:02 | CT_ITS ---
STUDY: CT SOFT TISSUE NECK WITH CONTRAST REASON FOR EXAM: Male, 61 years old. h/o H N SCC, s/p WALLPAPER REMOVER STEAM, small neck nodule, eval RADIATION DOSAGE (If Supplied By Facility): CTDIvol = ( 17.54 ) mGy, DLP = ( 609.17 ) mGycm TECHNIQUE: The patient was scanned in a multi-detector CT scanner. High resolution transaxial imaging was performed following intravenous administration of IV 100mL Isovue-370. Sagittal and coronal images were reconstructed. Individualized dose optimization techniques were used for this CT. COMPARISON: None. FINDINGS: A left-sided portacatheter is seen with the tip in the superior vena cava. Normal bilateral parotid glands. Normal bilateral marble and granite polisher spaces. Normal bilateral parapharyngeal spaces. Normal bilateral carotid spaces. Normal bilateral sublingual and submandibular glands and spaces. Normal visualized nasopharynx. Normal retropharyngeal space. Normal perivertebral space. Normal visualized bilateral faucial tonsils. The visualized tongue, tongue base and oropharynx are normal. The visualized cervical lymph nodes (levels I-) are within normal size limits, and maintain normal morphology. There is no demonstrated solid or cystic mass lesion. There is no abnormal contrast enhancement. Normal epiglottis, bilateral vallecula and hypopharynx. The pre-epiglottic and paraglottic adipose spaces are normal. Normal visualized bilateral piriform sinuses, aryepiglottic folds, and arytenoid-cricoid articulations. Normal subglottic trachea. Mild asymmetry of the right vocal cord with the slight prominence as compared to the left side. Normal bilateral lobes of the thyroid gland. Normal visualized pulmonary apices. Normal visualized paranasal sinuses. There is degenerative changes of the cervical spine. Loss of the normal cervical lordosis. CT/Soft Tissue Neck WITH Contrast IMPRESSION: Mild asymmetry of the right vocal cord. No mass lesion is seen. Electronically Signed: Efrain Rodriguez MD at 8:52 EST ,
[2021-11-22 16:11] LABS: CREATININE FINGERSTICK 0.8 mg/dL (0.70-1.30); EGFR FINGERSTICK > 60.0000 mL/min (>60)
== END 2021-11-22 23:59 | disposition home or self-care (01) ==
LOC: CT 15:53
PROVIDERS: Referring Provider Student in an Organized Health Care Education/Training Program; Visit Provider Student in an Organized Health Care Education/Training Program
DX: C76.0 Malignant neoplasm of head, face and neck (principal)
CPT/HCPCS: 70491; Q9967

== ENCOUNTER → 2022-03-10 | Outpatient (CLI) | payer OTHER, SELFPAY ==
[2021-02-01 15:58] VITALS: BMI 35.2
--- NOTE | 2022-03-10 15:40 | SP.MBSS_ITS ---
Modified Barium Swallow - Patient Information Study Date: 03/10/22 Study Time: 15:00 Direct Billable Minutes: 120 Total Minutes procedure & reportin Diagnosis: Head and neck cancer (C76.0) Referring Physician: Ananth Aguilar Reason for Referral: Objectively assess swallow function, risk for aspiration, and determine recommendations for least restrictive diet textures and compensatory strategies to improve safety of swallow. 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 From 02/17/2020 - 04/02/2020 he received definitive chemoradiation therapy. MBS study completed on 02/15/2021 revealing mild oropharyngeal dysphagia. He was recommended for regular - soft textures / thin liquids with compensatory strategies including small bites/sips, slow rate, alternate liquids and solids. He was recommended for outpatient dysphagia therapy to implement oropharyngeal strengthening, educate the patient on compounding effects of radiation therapy placing him at risk for worsening dysphagia over time, and to reinforce the above mentioned compensatory strategies. He attended a BSE and two follow up dysphagia treatment sessions prior to encountering scheduling issues impacting his ability to return to therapy. He now presents for yearly MBS study to monitor swallow function due to risk for worsening dysphagia s/p radiation treatment. Current Diet Ordered: Regular soft / Thin Dentition: Natural Teeth, Missing Teeth Mental Status: WNL Respiratory Status: Oxygenating on Room Air - Penetration-Aspiration Scale Penetration-Aspiration Scale: OBJECTIVE ASSESSMENT OF SWALLOW FUNCTION (QUANTITATIVE ? PER TRIAL): PENETRATION / ASPIRATION SCALE (THACKER): 1 = does not enter airway 2 = enters airway/above vocal folds/ejected 3 = enters airway/above vocal folds/not ejected 4 = enters airway/contacts vocal folds/ejected 5 = enters airway/contacts vocal folds/not ejected 6 = enters airway/below vocal folds/ejected 7 = enters airway/below vocal folds/not ejected despite effort 8 = enters airway/below vocal folds/no effort VIDEOFLOROSCOPIC SCALE SCORE (THACKER): Grade I = aspiration of material that has penetrated into the laryngeal vestibule, intact cough reflex Grade II = aspiration < 10 % of the bolus, intact cough reflex Grade III = aspiration of < 10 % of the bolus, reduced cough reflex or aspiration of > 10 % of the bolus, intact cough reflex Grade IV = aspiration of > 10 % of the bolus, reduced cough reflex - Penetration-Aspiration Scale Score Thin Liquid via teaspoon Result: 1= does not enter airway Thin Liquid via teaspoon Trial 2 Result: 1= does not enter airway Thin Liquid via large single sip from cup Result: 2= enter airway/above vocal folds/ejected Thin Liquid via small single sip from cup Result: 1= does not enter airway Thin Liquid via sequential sips from cup Result: 2= enter airway/above vocal folds/ejected [place] Thick Liquid via small single sip from cup Result: 1= does not enter airway Honey Thick Liquid via small single sip from cup Result: 1= does not enter airway Pudding via teaspoon Result: 1= does not enter airway Cookie Result: 1= does not enter airway Thin Liquid via single sip from straw Result: 2= enter airway/above vocal folds/ejected - Oral Phase Labial Seal: No Labial Escape Tongue Control During Bolus Hold: Posterior escape of less than half of bolus - large sips of thin liquids to the vallecula prior to swallow onset Bolus Preparation/Mastication: Slow prolonged chewing/mashing with complete recollection Bolus Transport/Lingual Motion: Repetitive/disorganized tongue motion Oral Residue: Trace residue lining oral structures - Pharyngeal Phase Initiation of Pharyngeal Swallow: Bolus head in valleculae Soft Palate Elevation: Trace column of contrast/air between soft palate and pharyngeal wall Laryngeal Elevation: Partial superior movement thyroid cart/partial apprx aryt- epig petiole Anterior Hyoid Excursion: Complete anterior movement Epiglottic Movement: Complete inversion Laryngeal Vestibule Closure at Height of Swallow: Incomplete; narrow column of air/contrast in laryngeal vestibule Pharyngeal Stripping Wave: Absent Pharyngoesophageal Segment Opening: Complete distension and complete duration; no obstruction of flow Tongue Base Retraction: Narrow column of contrast between tongue base & post. pharyngeal wall Pharyngeal Residue: Collection of residue within or on pharyngeal structures - Treatment Strategies Effects of treatment strategies attemped:: Decreased bolus rate = effective. Decreased bolus volume = effective. Double swallow = effective. - Diagnosis/Impression Diagnosis: Mild oropharyngeal phase dysphagia (R13.12) Impression: The patient's oral phase is marked by lingual pumping of cookie bolus prior to swallow onset, likely due to ongoing xerostomia. With large sips, which the pat ieenrike admits to using throughout his day, he utilized piecemeal deglutition to clear sip from oral cavity and presented with mild premature posterior loss of bolus. The pharyngeal phase is marked by mildly decreased tongue base retraction and absent pharyngeal stripping wave, resulting in trace-mild pharyngeal residues. He independently initiates double swallows to clear pharyngeal residues. He d emonstrates good anterior hyoid movement. He has mildly decreased laryngeal elevation and demonstrated laryngeal penetration with full ejection of large single sips of thin liquids via cup and straw, as well as sequential sips of thin liquids. No aspiration observed during the swallow. Reduction in liquid bolus volume and rate were effective to eliminate penetration. No aspiration observed during the study. - Recommendations Diet: Regular Textures, Thin Liquids Comment: Consider adding sauce/gravy to dry consistencies Compensatory Strategies: Small Bites, Small Sips, Slow Rate, Multiple Swallows - independent use of double swallow, Sitting upright Recommend Repeat Modified Barium Swallow: Yes - Yearly MBS study to monitor dysphagia and aspiration risk s/p radiation treatment. Need for Skilled Speech Therapy Services: Yes Comment: Will recommend follow up outpatient dysphagia therapy (1-2 sessions) to review oropharyngeal exercise program with the purpose of maintaining optimal swallow function and decrease risk for aspiration s/p radiation. The patient feels restricted ROM in neck and reports continued xerostomia. [employer] palpated mild fascial restriction on R anterior neck and in the region of the suprahyoids. Discussed the benefits of myofascial release (MFR) in junction with oropharyngeal strengthening and neck ROM exercises to improve soft tissue mobility in anterior neck and decrease risk for worsening dysphagia. [employer]ENCE TROUBLE SHO[employer]ER to follow up with the patient for continued education and determine if the patient would be interested in participating. Pending the patient is interested in myofascial release in junction with oropharyngeal strengthening, [employer]ENCE TROUBLE SHOOTER will further discuss appropriateness for MFR with the patient's radiation oncologist., Dr. Aguilar. Education Completed: 1. Described result of evaluation. - Thorough education re: results and recommendations of MBS study completed via in person discussion, review of images, and follow-up phone call. Plan for continued education re: strategies to decrease aspiration risk, as well as further education about rationale and benefits of MFR., 7. Pt requires further education on strategies & risks. - Status Active ST Patient: Active - Contact Information [facility] Speech Therapy:: Rosalee Hartley M.A. [facility]-[employer] Speech-Language Pathologist [facility] [address] [place] [address] [email or web address] [phone] 03/10/22 16:28
--- NOTE | 2022-09-30 15:56 | HP.SP.DC ---
ST Discharge Summary - Discharged: Discharge: MBSS 03/10/2022 recommended Regular Textures, Thin Liquids, Consider adding sauce/gravy to dry consistencies; Compensatory Strategies: Small Bites, Small Sips, Slow Rate, Multiple Swallows - independent use of double swallow, Sitting upright; Recommend Repeat Modified Barium Swallow: Yes - Yearly MBS study to monitor dysphagia and aspiration risk s/p radiation treatment. Need for Skilled Speech Therapy Services: Yes - Will recommend follow up outpatient dysphagia therapy (1-2 sessions) to review oropharyngeal exercise program with the purpose of maintaining optimal swallow function and decrease risk for aspiration s/p radiation. The patient feels restricted ROM in neck and reports continued xerostomia. FISH MACHINE FEEDER palpated mild fascial restriction on R anterior neck and in the region of the suprahyoids. Discussed the benefits of myofascial release (MFR) in junction with oropharyngeal strengthening and neck ROM exercises to improve soft tissue mobility in anterior neck and decrease risk for worsening dysphagia. FISH MACHINE FEEDER to follow up with the patient for continued education and determine if the patient would be interested in participating. Pending the patient is interested in myofascial release in junction with oropharyngeal strengthening, FISH MACHINE FEEDER will further discuss appropriateness for MFR with the patient's radiation oncologist., Dr. Aguilar. The patient has not called back to schedule additional speech therapy and the chart will be discharged at this time. FISH MACHINE FEEDER to follow up with the patient re: recommendation for yearly MBSS to monitor risk for worsening dysphagia and aspiration risk s/p chemoradiation treatment.
== END | disposition home or self-care (01) ==
PROVIDERS: Visit Provider Student in an Organized Health Care Education/Training Program
DX: C76.0 Malignant neoplasm of head, face and neck (principal)
CPT/HCPCS: 74230; 92611

== ENCOUNTER → 2022-07-28 | Outpatient (CLI) | payer OTHER, SELFPAY ==
[2021-02-01 15:58] VITALS: BMI 35.2
--- NOTE | 2022-07-28 16:22 | RAD_ITS ---
INDICATION: HEAD and amp; NECK CANCER EXAMINATION/TECHNIQUE: X-RAY - XR Chest 2 Views COMPARISON: 02/13/2020 FINDINGS: LIFE-SUPPORT AND LINES: 1. Interval removal of previous Port-A-Cath. 2. No pneumothorax. HEART AND VESSELS: The cardiac silhouette, pulmonary vasculature have normal appearance. No evidence of congestive failure. LUNGS AND PLEURAL SPACES: Lungs are clear. No focal infiltrate, consolidation or effusions. No evidence of pneumothorax. No pulmonary mass is noted. MEDIASTINUM AND HILAR REGIONS: No masses adenopathy noted. No areas of calcification. Visualized upper airway is normal in position. BONY ELEMENTS: No acute bony changes noted. RAD/Chest PA and Lateral IMPRESSION: 1. No evidence of acute cardiopulmonary process Electronically Signed: Portillo Cho MD at 0:44 EDT ,
== END | disposition home or self-care (01) ==
LOC: RAD 16:09
PROVIDERS: Referring Provider Internal Medicine Medical Oncology; Visit Provider Internal Medicine Medical Oncology
DX: C76.0 Malignant neoplasm of head, face and neck (principal)
CPT/HCPCS: 71046

== ENCOUNTER → 2023-03-20 | Outpatient (CLI) | payer BC, SELFPAY ==
[2021-02-01 15:58] VITALS: BMI 35.2
--- NOTE | 2023-03-20 13:43 | ST.MBS ---
Modified Barium Swallow - Patient Information Study Date: 03/20/23 Study Time: 13:00 Direct Billable Minutes: 104 Total Minutes procedure & reportin Diagnosis: Head and neck cancer (C76.0) Referring Physician: Ananth Aguilar Reason for Referral: Objectively assess swallow function, risk for aspiration, and determine recommendations for least restrictive diet textures and compensatory strategies to improve safety of swallow. 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 From 02/17/2020 - 04/02/2020 he received definitive chemoradiation therapy. MBS study completed on 02/15/2021 revealing mild oropharyngeal dysphagia. He was recommended for regular - soft textures / thin liquids with compensatory strategies including small bites/sips, slow rate, alternate liquids and solids. He was recommended for outpatient dysphagia therapy to implement oropharyngeal strengthening, educate the patient on compounding effects of radiation therapy placing him at risk for worsening dysphagia over time, and to reinforce the above mentioned compensatory strategies. He attended a BSE and two follow up dysphagia treatment sessions prior to encountering scheduling issues impacting his ability to return to therapy. Yearly MBSS 03/10/22 revealed mild dysphagia, low aspiration risk, but recommended 1-2 follow up sessions with [employer] for neck ROM and to re-educate maintenance home oropharyngeal exercise program. He declined return to due to financial and scheduling reasons. He now re-presents for yearly MBS study to monitor swallow function due to risk for worsening dysphagia s/p radiation treatment. Current Diet Ordered: Regular textures / Thin liquids Dentition: WNL Mental Status: WNL Respiratory Status: Oxygenating on Room Air - Penetration-Aspiration Scale Penetration-Aspiration Scale: OBJECTIVE ASSESSMENT OF SWALLOW FUNCTION (QUANTITATIVE ? PER TRIAL): PENETRATION / ASPIRATION SCALE (THACKER): 1 = does not enter airway 2 = enters airway/above vocal folds/ejected 3 = enters airway/above vocal folds/not ejected 4 = enters airway/contacts vocal folds/ejected 5 = enters airway/contacts vocal folds/not ejected 6 = enters airway/below vocal folds/ejected 7 = enters airway/below vocal folds/not ejected despite effort 8 = enters airway/below vocal folds/no effort VIDEOFLOROSCOPIC SCALE SCORE (THACKER): Grade I = aspiration of material that has penetrated into the laryngeal vestibule, intact cough reflex Grade II = aspiration < 10 % of the bolus, intact cough reflex Grade III = aspiration of < 10 % of the bolus, reduced cough reflex or aspiration of > 10 % of the bolus, intact cough reflex Grade IV = aspiration of > 10 % of the bolus, reduced cough reflex - Penetration-Aspiration Scale Score Thin Liquid via teaspoon Result: 1= does not enter airway Thin Liquid via teaspoon Trial 2 Result: 2= enter airway/above vocal folds/ejected Thin Liquid via small single sip from cup Result: 1= does not enter airway Pudding via teaspoon Result: 1= does not enter airway 1/2 Cookie Result: 1= does not enter airway Thin Liquid via sequential sips from straw Result: 2= enter airway/above vocal folds/ejected - Oral Phase Labial Seal: No Labial Escape Tongue Control During Bolus Hold: Posterior escape of less than half of bolus Bolus Preparation/Mastication: Timely and efficient chewing and mashing Bolus Transport/Lingual Motion: Brisk tongue motion Oral Residue: Trace residue lining oral structures - seen spilling to the vallecula and pyriforms after the swallow - Pharyngeal Phase Initiation of Pharyngeal Swallow: Bolus head in pyriforms Soft Palate Elevation: Trace column of contrast/air between soft palate and pharyngeal wall Laryngeal Elevation: Comp. Superior move thyroid cart w/comp. apprx arytenoid cart-epig pet Anterior Hyoid Excursion: Partial anterior movement Epiglottic Movement: Complete inversion Laryngeal Vestibule Closure at Height of Swallow: Incomplete; narrow column of air/contrast in laryngeal vestibule Pharyngeal Stripping Wave: Present - complete Pharyngoesophageal Segment Opening: Complete distension and complete duration; no obstruction of flow Tongue Base Retraction: Narrow column of contrast between tongue base & post. pharyngeal wall Pharyngeal Residue: Collection of residue within or on pharyngeal structures - Diagnosis/Impression Diagnosis: Mild pharyngeal phase dysphagia (R13.13) Impression: The pharyngeal phase is primarily marked by... -Mildly delayed swallow onset, most notable with large, sequential sips of thin liquids. -Partial anterior hyoid excursion. Trace laryngeal penetration of thin liquids with full ejection from the laryngeal vestibule after the swallow. No aspiration observed during the study. -Mildly decreased tongue base retraction and pharyngeal stripping wave with resulting trace-mild pharyngeal residues after the swallow. The patient complains of increased neck tension as compared to previous year, mostly when turning head right and lifting head upwards. He required increased verbal and manual instruction to keep shoulders lowered and neck in upright position for optimal imaging for the study as compared to previous studies. - Recommendations Diet: Regular Textures, Thin Liquids Compensatory Strategies: Small Bites, Small Sips, Slow Rate, Alternate bites/solids and sips/liquids, Sitting upright Recommend Repeat Modified Barium Swallow: Yes Comment: Repeat MBSS in 1 year to monitor swallow function as the patient is at risk for worsening dysphagia and aspiration risk s/p radiation treatment. Need for Skilled Speech Therapy Services: Yes Comment: Follow-up with OP [employer] for 1-2 sessions to implement maintenance home exercise program to promote improved neck ROM, tongue base retraction, hyoid excursion, and pharyngeal contraction (SEE patient's hard chart for prepared exercise program). The patient is at risk for worsening dysphagia and aspiration risk s/p radiation treatment for HNC. The patient complains of increased neck tension as compared to previous year, mostly when turning head right and lifting head upwards. He required increased verbal and manual instruction to keep shoulders lowered and neck in upright position for optimal imaging for the study. Patient would like to consider pursuing 1-2 speech therapy sessions depending on his insurance coverage, [employer] placed OP ST order. Education Completed: 1. Described result of evaluation., 2. Pt understands evaluation & agrees with goals and treatment plan., 7. Pt requires further education on strategies & risks. - Status Active ST Patient: Active - Contact Information [facility] Speech Therapy:: Rosalee Hartley M.A. [facility]-[employer] Speech-Language Pathologist [facility] [address] [place] [address] [phone] 03/20/23 13:47
== END | disposition home or self-care (01) ==
PROVIDERS: PCP Family Medicine; Referring Provider Student in an Organized Health Care Education/Training Program; Visit Provider Student in an Organized Health Care Education/Training Program
DX: C76.0 Malignant neoplasm of head, face and neck (principal)
CPT/HCPCS: 74230; 92611

== ENCOUNTER → 2023-03-28 | Outpatient (CLI) | payer BC, SELFPAY ==
[2021-02-01 15:58] VITALS: BMI 35.2
--- NOTE | 2023-03-28 13:31 | CT_ITS ---
STUDY: LOW DOSE CT LUNG CANCER SCREENING REASON FOR EXAM: Male, 62 years old. Lung cancer screening -- and gt;20 pk yr hx;former smoker;asymptomatic RADIATION DOSAGE (If Supplied By Facility): CTDIvol = ( 4.02 ) mGy, DLP = ( 159.54 ) mGycm TECHNIQUE: No contrast was administered. Low dose technique was utilized (average mAS-38 and kVp 120). 1.25 mm axial source images with a slice interval of 1.25-mm were reconstructed in lung windows. 2.5 mm axial source images with a slice interval of 2.5-mm were reconstructed in lung windows. 5.0 mm axial source images with a slice interval of 5.0-mm were reconstructed in soft tissue windows. COMPARISON: None. NODULES: No suspicious nodules are seen. Emphysema: Mild degree of emphysematous changes. Mild scarring at the lung apices. Mild linear scarring at the left lung base. Endobronchial lesion: Unremarkable. Aorta: Unremarkable. CORONARY ARTERIES: Coronary artery calcification is seen. Heart: Unremarkable Pulmonary artery: Unremarkable Mediastinal nodes: Small mediastinal lymph nodes. Other chest and abdominal findings: CT/Low Dose CT Lung Screening IMPRESSION: Lung-RADS category 2 - Continue annual screening with LDCT in 12 months. IMPORTANT NOTES FOR USE: ACR Lung-RADS Version 1.1 Assessment Categories Release Date: 2018 Category: Coded 0-4 bases on nodule(s) with highest degree of suspicion. Negative screen is defined as categories 1 and 2; a positive screen is defined as categories 3 and 4. Category 3 and 4A nodules that are unchanged on interval CT should be coded as category 2, and individuals returned to screening in 12 months. Category 4X: Category 3 or 4 nodules with additional imaging findings that increase the suspicion of lung cancer, such as spiculation, GGN that doubles in size in 1 year, enlarged lymph notes, etc. Category Modifiers: S (significant finding unrelated to lung cancer) Electronically Signed: Efrain Rodriguez MD at 14:20 EDT ,
== END | disposition home or self-care (01) ==
LOC: CT 13:30
PROVIDERS: PCP Family Medicine; Referring Provider Nurse Practitioner Family; Visit Provider Nurse Practitioner Family
DX: C76.0 Malignant neoplasm of head, face and neck (principal); Z87.891 Personal history of nicotine dependence
CPT/HCPCS: 71271

== ENCOUNTER → 2024-04-02 | Outpatient (CLI) | payer BC, SELFPAY ==
[2021-02-01 15:58] VITALS: BMI 35.2
--- NOTE | 2024-04-02 12:33 | CT_ITS ---
STUDY: LOW DOSE CT LUNG CANCER SCREENING REASON FOR EXAM: Male, 63 years old. Lung cancer screening -- and gt;20 pk yr hx;former smoker; asymptomatic RADIATION DOSAGE (If Supplied By Facility): CTDIvol = ( 4.02 ) mGy, DLP = ( 148.98 ) mGycm TECHNIQUE: No contrast was administered. Low dose technique was utilized (average mAS-38 and kVp 120). 1.25 mm axial source images with a slice interval of 1.25-mm were reconstructed in lung windows. 2.5 mm axial source images with a slice interval of 2.5-mm were reconstructed in lung windows. 5.0 mm axial source images with a slice interval of 5.0-mm were reconstructed in soft tissue windows. COMPARISON: Comparison is made with prior study dated March 28, 2023. NODULES: No suspicious nodules are seen. Emphysema: Stable mildly with emphysematous changes and scarring at the lung apices. Endobronchial lesion: Unremarkable Aorta: Unremarkable CORONARY ARTERIES: Coronary artery calcification is seen. Heart: Unremarkable Pulmonary artery: Unremarkable Mediastinal nodes: Small mediastinal lymph nodes. Other chest and abdominal findings: CT/Low Dose CT Lung Screening IMPRESSION: Lung-RADS category 2 - Continue annual screening with LDCT in 12 months. IMPORTANT NOTES FOR USE: ACR Lung-RADS Version 1.1 Assessment Categories Release Date: 2018 Category: Coded 0-4 bases on nodule(s) with highest degree of suspicion. Negative screen is defined as categories 1 and 2; a positive screen is defined as categories 3 and 4. Category 3 and 4A nodules that are unchanged on interval CT should be coded as category 2, and individuals returned to screening in 12 months. Category 4X: Category 3 or 4 nodules with additional imaging findings that increase the suspicion of lung cancer, such as spiculation, GGN that doubles in size in 1 year, enlarged lymph notes, etc. Category Modifiers: S (significant finding unrelated to lung cancer) Electronically Signed: Efrain Rodriguez MD at 14:09 EDT ,
--- NOTE | 2024-04-02 13:40 | SP.MBSS_ITS ---
Modified Barium Swallow Patient Information Study Date: 04/02/24 Study Time: 12:45 Direct Billable Minutes: 91 Total Minutes procedure & reportin Diagnosis: Head and neck cancer (C76.0) Referring Physician: Ananth Aguilar Reason for Referral: Objectively assess swallow function, risk for aspiration, and determine recommendations for least restrictive diet textures and compensatory strategies to improve safety of swallow. 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 From 02/17/2020 - 04/02/2020 he received definitive chemoradiation therapy. He attended during treatment and briefly following treatment; however, work schedule has impacted his ability to participate in OP ST. Yearly MBSS is recommended s/p chemoradiation (02/15/21, 03/10/22, 03/20/23). Most recent MBSS 03/20/23 revealed mild pharyngeal dysphagia, low aspiration risk, but recommended follow up sessions with MORTICIAN HELPER for neck ROM and re-education re: maintenance home oropharyngeal exercise program, as well as myofascial release. He declined return to due to scheduling reasons. He now re-presents for yearly MBS study to monitor swallow function due to risk for worsening dysphagia s/p chemoradiation treatment. He reports decreased xerostomia as compared to previous years, which he now only notices when he eats meat and dry textures. He requires liquid washes, but feels that his foods/drinks are clearing well. He has no additional complaints for swallowing difficulty. He still reports continued tension in his neck, but he feels it has not worsened since last year?s study. Current Diet Ordered: Regular textures / Thin liquids Dentition: Natural Teeth and Missing Teeth (Root canal yesterday. Pt feels okay to chew on right side of mouth for cookie trial after lengthy discussion.) Mental Status: WNL Respiratory Status: Oxygenating on Room Air Penetration-Aspiration Scale Penetration-Aspiration Scale: OBJECTIVE ASSESSMENT OF SWALLOW FUNCTION (QUANTITATIVE ? PER TRIAL): PENETRATION / ASPIRATION SCALE (THACKER): 1 = does not enter airway 2 = enters airway/above vocal folds/ejected 3 = enters airway/above vocal folds/not ejected 4 = enters airway/contacts vocal folds/ejected 5 = enters airway/contacts vocal folds/not ejected 6 = enters airway/below vocal folds/ejected 7 = enters airway/below vocal folds/not ejected despite effort 8 = enters airway/below vocal folds/no effort VIDEOFLOROSCOPIC SCALE SCORE (THACKER): Grade I = aspiration of material that has penetrated into the laryngeal vestibule, intact cough reflex Grade II = aspiration < 10 % of the bolus, intact cough reflex Grade III = aspiration of < 10 % of the bolus, reduced cough reflex or aspiration of > 10 % of the bolus, intact cough reflex Grade IV = aspiration of > 10 % of the bolus, reduced cough reflex Penetration-Aspiration Scale Score Thin Liquid via teaspoon: Result: 1= does not enter airway Thin Liquid via teaspoon Trial 2: Result: 1= does not enter airway Thin Liquid via average-size single sip: cup: Result: 1= does not enter airway [place] Thick Liquid via small single sip: cup: Result: 1= does not enter airway 1/2 Cookie: Result: 1= does not enter airway Thin Liquid via sequential sips:straw: Result: 1= does not enter airway Oral Phase Labial Seal: Interlabial escape, no progression to anterior lip Tongue Control During Bolus Hold: Escape to lateral buccal cavity/floor of mouth Bolus Preparation/Mastication: Timely and efficient chewing and mashing Bolus Transport/Lingual Motion: Brisk tongue motion Oral Residue: Majority of bolus remaining (mild residue seen spilling to vallecula after the swallow for mildly thick liquids, moderate residue of cookie with complete clearance on second swallow) Pharyngeal Phase Initiation of Pharyngeal Swallow: Bolus head at posterior laryngeal surgace of epiglottis Soft Palate Elevation: Trace column of contrast/air between soft palate and phar yngeal wall Laryngeal Elevation: Comp. Superior move thyroid cart w/comp. apprx arytenoid cart-epig pet Anterior Hyoid Excursion: Partial anterior movement Epiglottic Movement: Complete inversion Laryngeal Vestibule Closure at Height of Swallow: Complete; no air/contrast in laryngeal vestibule Pharyngeal Stripping Wave: Present - complete Pharyngoesophageal Segment Opening: Complete distension and complete duration; no obstruction of flow Tongue Base Retraction: Narrow column of contrast between tongue base & post. pharyngeal wall Pharyngeal Residue: Trace residue within or on pharyngeal structures Esophageal Phase Esophageal Clearance: Complete clearance Diagnosis/Impression Diagnosis: Oropharyngeal swallow function grossly WNL Impression: Oropharyngeal swallow function appears grossly WNL. Compared to previous study, he demonstrated improved bolus control, improved laryngeal vestibular closure at the height of the swallow, improved initiation of the pharyngeal swallow, and decreased pharyngeal residue as compared to MBSS on 03/20/23. He did demonstrate increased oral residue; however, this is likely due to patient chewing and manipulating cookie very carefully s/p root canal 04/01/24. He effectively cleared cookie bolus independently with initiation of a second swallow. No aspiration was observed; however, the MORTICIAN HELPER cannot definitively rule out aspiration due to patient's body habitus. Recommendations Diet: Regular Textures and Thin Liquids Compensatory Strategies: Small Bites, Small Sips, Slow Rate, Alternate bites/solids and sips/liquids (with dry textures), Sitting upright and Remain sitting upright for 30 minutes after PO intake Recommend Repeat Modified Barium Swallow: Yes (Repeat MBS study in 6-12 months to monitor swallow function as the patient is at risk for worsening dysphagia and aspiration risk s/p chemoradiation treatment.) Need for Skilled Speech Therapy Services: Yes Comment: MORTICIAN HELPER recommended participation in follow-up OP therapy to re-educate in neck ROM exercises and maintenance oropharyngeal exercise program with consideration for participation in myofascial release due to patient concerns for restricted neck ROM s/p radiation treatment. MORTICIAN HELPER educated risk for radiation fibrosis and worsening swallow function s/p chemoradiation. He politely declined additional ST services at this time due to scheduling conflicts with work. MORTICIAN HELPER requested he reach out to the cancer center to request OP ST orders if neck stiffening worsens or if work schedule allows for return to ST. Pt verbalized understanding. Education Completed: 1. Described result of evaluation. Status Active ST Patient: Active Contact Information [facility] Speech Therapy:: Rosalee Hartley M.A. [facility]? Speech-Language Pathologist?? [facility] [address] [place] [address]? [email or web address]?? [phone]
== END | disposition home or self-care (01) ==
PROVIDERS: PCP Family Medicine; Referring Provider Student in an Organized Health Care Education/Training Program; Visit Provider Student in an Organized Health Care Education/Training Program
DX: Z12.2 Encounter for screening for malignant neoplasm of respiratory organs (principal); C76.0 Malignant neoplasm of head, face and neck; Z87.891 Personal history of nicotine dependence
CPT/HCPCS: 71271; 74230; 92611

== ENCOUNTER → 2025-03-18 | Outpatient (CLI) | payer BC, SELFPAY ==
[2021-02-01 15:58] VITALS: BMI 35.2
--- NOTE | 2025-03-18 07:49 | CT_ITS ---
PROCEDURE: SOFT TISSUE NECK WITH CONTRAST 03/18/2025 REASON FOR EXAM: PRIOR H N CANCER, EVAL RIGHT NECK FOR MASS History of laryngeal carcinoma with radiation and chemotherapy. Right neck pain at the jaw line. TECHNIQUE: CT of the soft tissues of the neck from the orbits to the upper mediastinum with intravenous contrast. CONTRAST: Isovue 370 VOLUME: 75 mL 22 gauge IV One or more dose reduction techniques were used (e.g., Automated exposure control, adjustment of the mA and/or kV according to patient size, use of iterative reconstruction technique). RADIATION DOSE SUMMARY: CTDlvol: 17.8 mGy DLP: 587.01 mGycm COMPARISON: CT soft tissue neck, 11/22/2021. FINDINGS: Airway: The nasopharynx, oropharynx and hypopharynx are unremarkable. The epiglottis aryepiglottic folds piriform sinuses, glottis and subglottic regions are unremarkable. The laryngeal cartilages are unremarkable. Salivary glands: There is lipomatous atrophy of the right submandibular gland. The remaining major salivary glands are unremarkable. Lymph nodes: There is no cervical lymphadenopathy. There is partial atrophy of the right sternocleidomastoid muscle. Thyroid: Unremarkable. Vasculature: Unremarkable. Orbits: Unremarkable. Paranasal sinuses and mastoids: There is right seema bullosa with nasal septal deviation to the left. There is mild mucoperiosteal thickening of both maxillary sinuses. The mastoid air cells are clear. Lung apices: Normal. Upper mediastinum: Unremarkable. Bones: There is multilevel degenerative disc disease of the thoracic spine. Other: The visualized intracranial contents are unremarkable. CT/Soft Tissue Neck WITH Contrast IMPRESSION: 1. Posttherapy changes in the right neck as described. 2. There are no abnormal cervical masses or lymphadenopathy. 3. Other findings as noted. Reading Location: [id number]
== END | disposition home or self-care (01) ==
PROVIDERS: PCP Family Medicine; Referring Provider Student in an Organized Health Care Education/Training Program; Visit Provider Student in an Organized Health Care Education/Training Program
DX: C76.0 Malignant neoplasm of head, face and neck (principal)
CPT/HCPCS: 70491; 74230; Q9967; A4216

== ENCOUNTER → 2025-04-22 | Outpatient (CLI) | payer BC, SELFPAY ==
[2021-02-01 15:58] VITALS: BMI 35.2
--- NOTE | 2025-04-22 13:45 | CT_ITS ---
PROCEDURE: LOW DOSE CT LUNG SCREENING 04/22/2025 REASON FOR EXAM: LUNG CANCER SCREENING Former smoker. Patient has smoked 1 pack per day for 30 years. TECHNIQUE: LOW DOSE CT LUNG SCREENING Coronal and Sagittal reconstruction series were provided. One or more dose reduction techniques were used (e.g., Automated exposure control, adjustment of the mA and/or kV according to patient size, use of iterative reconstruction technique). REFERENCE LINK: [employer] Lung-RADS RADIATION DOSE SUMMARY: CTDlvol: 4.02 mGy DLP: 150.49 mGycm COMPARISON: Prior study dated April 02, 2024. FINDINGS: PULMONARY NODULES: (Only nodules >3mm are reported) Nodules described below are on series 1 unless otherwise specified. Pulmonary Nodules: No suspicious nodules are seen. Hardware:None Lymph Nodes:No significant lymph nodes are seen. Heart and Vasculature:Coronary artery calcifications are noted. Coronary Artery Calcifications: Present Lungs and Airways: Mild emphysematous changes are present. Pleura:No pleural effusions. Upper Abdomen:Unremarkable Bones:Degenerative changes of the thoracic spine. CT/Low Dose CT Lung Screening IMPRESSION: No suspicious nodules are seen. Coronary artery calcification (CAC) is is present Lung-RADS Category: 2 BENIGN (BASED ON IMAGING FEATURES OR INDOLENT BEHAVIOR). RECOMMEND 12-MONTH SCREENING LDCT. Other Significant Findings: Reading Location: [place] [id number]
== END | disposition home or self-care (01) ==
LOC: CT 13:31
PROVIDERS: PCP Family Medicine; Referring Provider Nurse Practitioner Family; Visit Provider Nurse Practitioner Family
DX: Z87.891 Personal history of nicotine dependence (principal); C76.0 Malignant neoplasm of head, face and neck
CPT/HCPCS: 71271

== ENCOUNTER 2025-06-17 10:30 | Outpatient (RCR) | payer BC, SELFPAY ==
[2021-02-01 15:58] VITALS: BMI 35.2
--- NOTE | 2025-04-23 09:32 | HP.SP.EV_ITS ---
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 Dysphagia Hx: He attended ST during treatment and briefly following treatment; however, work schedule has impacted his ability to participate in OP ST. Yearly MBSS is recommended s/p chemoradiation (02/15/21, 03/10/22, 03/20/23, 04/02/24). Most recent MBSS 04/02/24 revealed oropharyngeal swallow function grossly WNL w/ recommendations for Regular Textures and Thin Liquids w/ the following Compensatory Strategies: Small Bites, Small Sips, Slow Rate, Alternate bite s/solids and sips/liquids (with dry textures), Sitting upright and Remain sitting upright for 30 minutes after PO intake. He was recommended for follow up ST to re-train him in oropharyngeal exercises and neck ROM exercises, but pt ultimately declined follow up due to busy work schedule. He re-presented for yearly MBSS 03/17/2025 to monitor swallow function due to risk for worsening dysphagia s/p chemoradiation treatment. At that time, he reported decreased xerostomia as compared to previous years with occ need for liquid wash. He had no additional complaints for swallowing difficulty. He was also awaiting results of Head/Neck CT today due to concern for R neck thickening and pain in the area of the FOM just medial to the angle of the R mandible when he is chewing and moving his tongue L. Work up was not suspicious for new or recurring disease. MBSS 03/17/2025 revealed mild oropharyngeal dysphagia and recommended the following diet and textures: "Regular Textures and Thin Liquids...Compensatory Strategies: Small Bites, Small Sips, Slow Rate, Alternate bites/solids and sips/liquids (with dry textures), Sitting upright and Remain sitting upright for 30 minutes after PO intake." He as recommended for repeat annual MBSS to monitor risk for worsening dysphagia and aspiration risk s/p chemoradiation treatment. He was also recommended for OP dysphagia therapy follow up to re-train him in neck ROM exercises and maintenance oropharyngeal exercise program. Could consider myofascial release in junction w/ neck ROM exercises and maintenance oropharyngeal exercise program if the patient is agreeable. Lastly, he was recommended for GI consult due to esophageal retention of pudding and cookie during the MBSS. Smoking Status: Former smoker (August 2019 ) Pain Is pain an issue with your current prescribed condition?: No Personal Preferred language: Icelandic Patient Allergies Allergies Allergies: Allergies Penicillins Allergy (Severe, Verified 04/22/25 13:03) Anaphylaxis tetanus immune globulin Allergy (Severe, Verified 04/22/25 13:03) Pain in joints Patient reports loss of use of arm and leg for a few days after receiving tetanus injection on that side Subjective Dysphagia Symptoms Reported Symptoms/Problems with: Food gets stuck and Xerostomia Current Diet Solids Current Diet: Regular Current Diet Liquids Current Liquids: Thin Objective Dysphagia Administered by Administered by: Self Thin Liquids Comments: Via bottle. No overt s/s of aspiration, good oral clearance, good oral containment, no overt s/s of aspiration. Regular Comments: Timely mastication, minimal oral residue, no overt s/s of aspiration, need for liquid wash Diet Texture Recommendations Solids: Regular (Level 7) Liquids: Thin (Level 0) Other: Small Bites, Small Sips, Slow Rate, Alternate bites/solids and sips/liquids (with dry textures), Sitting upright and Remain sitting upright for 30 minutes after PO intake Results Swallowing Within Normal Limits: Yes Swallowing Diagnosis: Oropharyngeal Phase Dysphagia (R13.12) Severity: Mild Subjective Oral Motor Comments Comments: Decreased neck flexibility. Objective Oral Motor Oral Status Dentition: WNL Labial Impairment: WNL Closure: WNL Pucker: WNL Retraction: WNL Lingual Impairment: Mild Observation: Deviated Left Protrusion: Mild Retraction: WNL Lateralization: WNL Lingual Comments Comments: Slight deviation L Jaw Impairment: WNL Opening: WNL Closing: WNL Opening Measurement: 51mm Oral Motor Comments Comments: Neck ROM Measurements: Extension - 30 degrees (WNL = 50 degrees) Right neck rotation - 45 degrees (WNL = 80 degrees) Left neck rotation - 50 degrees (WNL = 80 degrees) Respiratory Status Respiratory Status: Room Air Swallowing Performance Scale Swallowing Performance Scale Swallowing Performance Scale Result: 3 Mild Reference: Neuro-QoL instrument Radiation Oncology Patient FOIS Functional Oral Intake Scale Total oral diet with multiple consistencies without special preparation, but with specific food limitations: Level 6 Other Other POC Discussion w/ patient: -: Due to decreased neck ROM, [employer]SEM[employer] CLEANER recommended the patient consider participation in myofascial release (MFR) in junction w/ oropharyngeal strengthening and neck ROM exercises. [employer]SEMBL[employer] CLEANER educated that myofascial release would be recommended 3-5X/week X2-3 weeks (a more intensive model than therapy following a more traditional exercise program). He politely declined participation in MFR at this time due to a busy work schedule, but stated he would consider it later in the year if having persisting difficulty. Plan Plan Plan: Will recommend the patient for outpatient dysphagia therapy to address mild oropharyngeal dysphagia. Speech therapy POC to include further training and education re: oropharyngeal exercise program and neck ROM exercise program to promote improved swallow function. Additionally, will provide ongoing assessment of diet tolerance. Without skilled ST services, the patient is at increased risk for aspiration. Recommendations Treatment Warranted: Yes Treatment Warranted: Dysphagia Progress Prognosis: Good Frequency Frequency: Every Other Week Duration: 4-6 Months Goals that are Established Determination:: Goals will be added/modified as deemed necessary and appropriate. Therapy will be discontinued when results of re-evaluation i ndicate therapy is no longer needed or lack of progress has been documented. Goal #1-5 Goal #1: The patient will complete an oropharyngeal exercise program X10-15 reps, 3-5X daily with minimal verbal cues to improve strength, ROM, and coordination of swallowing mechanism. Goal #2: The patient will complete a neck ROM exercise program X10 reps, 3-5X daily with minimal verbal cues to promote improved neck ROM to maintain mobility of swallowing mechanism. Education Patient has Indicated that the Following The Patient has indicated that they have no educational or learning abilities that may effect their care.: Yes Patient Instruction Patient Education: Diagnosis, Diet Level and Home Exercise Program Other Education: Diagnostic treatment for instruction in neck ROM exercises, Azucena Black and effortful swallow Person Taught: Patient Teaching Method: Discussion, Demonstration, Handout and Teach Back Response to teaching: Return Demonstration, Verbalize Understanding and Reinforcement Needed
--- NOTE | 2025-07-08 15:24 | HP.SP.DC ---
ST Discharge Summary Discharged: Discharge: Dysphagia evaluation 04/23/2025, which recommended treatment for mild oropharyngeal dysphagia. The patient participated in 6 dysphagia treatment sessions from 05/05/2025 to 06/17/2025. Insurance end date was 06/21/2025. He feels he is independent in completing home oropharyngeal and neck ROM exercise programs. Please complete 3-5X daily. Will discharge the patient from ST at this time; however, if concern for worsening swallow function and/or neck ROM, please inform physician for re-consult to speech therapy.
== END 2025-06-17 19:00 | disposition home or self-care (01) ==
LOC: SP 10:30
PROVIDERS: PCP Family Medicine; Referring Provider Radiology Radiation Oncology; Visit Provider Radiology Radiation Oncology
DX: C76.0 Malignant neoplasm of head, face and neck (principal)
CPT/HCPCS: 92526; 92610